=== PATIENT | female | born 1990 | race Caucasian/White ===

== ENCOUNTER 2022-02-17 12:09 | Observation (INO) | payer OTHER ==
[~2022-02-17] VITALS: Ht 157.5 cm; Wt 107.5 kg
[2022-02-17 14:23] LABS: RED BLOOD COUNT 3.09 M/UL (4.00-5.10); WHITE BLOOD COUNT 9.3 K/UL (4.5-11.0)
[2022-02-17 14:32] LABS: HEMOGLOBIN 6.8 gm/dl (12.3-15.3)
[2022-02-17 14:47] LABS: BUN/CREATININE RATIO 13 (0-10)
[2022-02-17] MEDS ORDERED: ESTRADIOL1 MG PO (17:55)
[2022-02-17 20:19] LABS: HEMOGLOBIN 6.9 gm/dl (12.3-15.3)
[2022-02-18] MEDS ORDERED: HEMOCYTE324 MG PO (13:37)
[2022-02-18] MEDS ORDERED: LYSTEDA650 MG PO (13:37)
[2022-02-18] MEDS ORDERED: IBUPROFEN800 MG PO (13:37)
== END 2022-02-18 20:02 | disposition home or self-care (01) ==
LOC: ER1 12:09 → MED SURG 4 20:35 → CDU 20:35 → MED SURG 4 22:26
PROVIDERS: Obstetrics & Gynecology; Physician Assistant; Physician Assistant Medical; ADMIT Obstetrics & Gynecology
PROC: 0UDB8ZZ Extraction of Endometrium, Via Natural or Artificial Opening Endoscopic (ICD-10-PCS; principal; 2022-02-18 09:15)
DX: N92.0 Excessive and frequent menstruation with regular cycle (principal); D64.9 Anemia, unspecified; K21.9 Gastro-esophageal reflux disease without esophagitis; M19.90 Unspecified osteoarthritis, unspecified site; G43.909 Migraine, unspecified, not intractable, without status migrainosus; E07.9 Disorder of thyroid, unspecified; E66.01 Morbid (severe) obesity due to excess calories; Z68.41 Body mass index [BMI] 40.0-44.9, adult; Z20.822 Contact with and (suspected) exposure to COVID-19; Z79.890 Hormone replacement therapy; Z79.899 Other long term (current) drug therapy
CPT/HCPCS: 36415; 36430; 80053; 81001; 82550; 82553; 84484; 84703; 85014; 85018; 85025; 86850; 86900; 86901; 86920; 93005; 96365; 99284; G0378; J0690; J1100; J1885; J2001; J2250; J2405; J2704; J3010; J7120; P9016; U0002

== ENCOUNTER → 2022-02-17 | Outpatient (CLI) | payer OTHER ==
[~2022-02-17] MED LIST: ESTRADIOL1 MG PO; HEMOCYTE324 MG PO; IBUPROFEN800 MG PO; LYSTEDA650 MG PO
[2022-02-17 11:34] LABS: RED BLOOD COUNT 2.91 M/UL (4.00-5.10); WHITE BLOOD COUNT 9.8 K/UL (4.5-11.0)
[2022-02-17 11:39] LABS: HEMOGLOBIN 6.4 gm/dl (12.3-15.3)
== END ==
LOC: OPSV2 10:00
PROVIDERS: Obstetrics & Gynecology
DX: Z01.812 Encounter for preprocedural laboratory examination (principal); N84.0 Polyp of corpus uteri
CPT/HCPCS: 36415; 85025; J7120